=== PATIENT | male | born 1995 | race Caucasian/White ===

== ENCOUNTER 2020-03-01 13:30 | Outpatient (RCR) | payer MEDICARE, SELFPAY ==
--- NOTE | 2019-12-05 14:03 | PTOPEVAL ---
PHYSICAL THERAPY EVALUATION AND PLAN OF CARE Thank you for referring Mateo Ruiz to [facility]. I recommend Mateo participate in physical therapy 2x/week for 4weeks. Please review, sign, date and return this plan of care RITA. I agree with and certify that the following plan of care is medically necessary. 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 His mother, Cadence, is present at evaluation with him. He is able to answer yes and no question independently by using 1finger for yes and 2 fingers for no. He is also able to pick choices based on number. Cadence reports that he is in a blind study with regular follow-up visits. He requires assist for bathing, dressing, bed mobility, and walking, but mom reports he requires less assist all the time. Mateo uses a standing table 3x/day and plays the wii and exercises and stretches every day. Reports no pain at rest. Reports throughout session that he has neck pain and back pain when twisting and when lying flat supine. Pain Assessment Timing of Pain Assessment Timing of Pain Assessment Assessment Self Report Self Report Pain Level 0 Pain Score Pain Score 0: Self Report Cervical and Lumbar ROM Cervical ROM Cervical Rotation Right (0-90) 25 Query Text:Active in Degrees Cervical Rotation Left (0-90) 15 Query Text:Active in Degrees Lower Extremity Range of Motion General Lower Extremity Range of Motion Limitations Muscle Length Restriction, Muscle Tone Gross Lower Extremity Range of Motion generally WFL throughout; Comments Lower Extremity Muscle Strength Testing Hip Strength Bilateral Hip Flexion Strength 4 Good Hip Extension Strength 3+ Fair + Hip Abduction Strength 3 Fair Knee Strength Bilateral Knee Flexion Strength 4 Good Knee Extension Strength 4 Good Muscle Length Testing Muscle Length Testing Scalene Group Muscle Length (R) Severe Tightness,(L) Que
--- NOTE | 2019-12-05 15:49 | OTOPEVAL ---
OCCUPATIONAL THERAPY EVALUATION 12/05/2019 Thank you for referring Mateo Ruiz to [facility]. Skilled OT indicated 2x/week for 4 weeks for deficits outlined below. Please review, sign, date and return this plan of care RITA. I agree with and certify that the following plan of care is medically necessary. Referring Physician Date Admitting Provider: Attending Provider: Referring Provider: Dr. Bernardo Zelaya *OT Outpatient Evaluation Therapy Assessment Status Assessment Status Assessment Status Evaluation Evaluation Information Problem Diagnosis Alberto's Disease Onset 2016 Subjective Information Mateo is here today for Query Text:As Reported By Patient/ occupational therapy with dx Family of Alberto's Disease. His mother, Cadence, is present at evaluation with him. He is able to answer yes and no question independently by using 1 finger for yes and 2 fingers for no. Cadence reports that he is in a blind study with regular follow-up visits. He requires assist for bathing, dressing, bed mobility, and walking, but mom reports he requires less assist all the time. Mateo uses a standing table 3x/day and plays the Wii and exercises and stretches every day. Cadence reports that his hand and elbow contractures are progressively getting worse limiting his ability to reach, grab, and use his hands. Prior Level of Function Activity Level (Last 3 Months) Hand Dominance Right Pain Assessment Timing of Pain Assessment Timing of Pain Assessment Assessment Self Report Self Report Pain Level 0 Pain Score Pain Score 0: Self Report Upper Extremity Range of Motion Scapular/ Shoulder Range of Motion Bilateral Reason Not Measured WFL/Left,WFL/Right Elbow/Forearm Range of Motion Left Elbow Extension - Active -25 Elbow Extension - Passive -10 Forearm Supination - Active 80 Forearm Pronation - Active 90 Elbow/Forearm Range of Motion Contracture Limitations Elbow/Forearm Range of Motion Comments Elbow flexion is WNL. Right Elbow Extension - Active -10 Elbow Extension - Passive -8 Forearm Supination - Active 75 Forearm Pronation - Ac
--- NOTE | 2019-12-06 09:21 | STOPEVAL ---
SPEECH THERAPY INITIAL OUTPATIENT EVALUATION. Thank you for referring Mateo Ruiz to [facility]. Skilled Speech Therapy is indicated 2x/week 4 for deficits outlined below. Please review, sign, date and return this plan of care RITA. I agree with and certify that the following plan of care is medically necessary. Referring Physician Date Attending Provider: PHYSICIAN NOT ON STAFF *ST Outpatient Initial Evaluation Start: 12/05/19 15:45 Freq: Status: Active Protocol: Document 12/05/19 15:46 BECHERERT (Rec: 12/05/19 16:18 BECHERERT [email or web address]) Therapy Assessment Status Assessment Status Assessment Status Evaluation Outpatient Past Medical History Past Medical History No Past Medical/Surgical History Patient/Family Denies Significant Past Medical/ Surgical History Evaluation Information Problem Diagnosis Alberto's Disease Onset 2016 Subjective Information Mateo is here today for speech Query Text:As Reported By Patient/ therapy with dx of Alberto's Family Disease. His mother, Cadence, is present at evaluation. He is able to answer yes and no question independently by using 1 finger for yes and 2 fingers for no. Cadence reports that he dependent on his PEG for providing all nutritional support and that he occasionally drinks thin liquids from a cup without overt signs of aspiration. Reportedly, he is in a blind study with regular follow-up visits. His mother reports that they try to perform mouth exercises every day but minimal vocalization is exhibited. Prior Level of Function Activity Level (Last 3 Months) Occupation medically dc'd from [employer] Hand Dominance Right Functional Cognition (Planning, Shopping Dependent , Taking Medications) Cooking No Cleaning No Laundry No Shopping No Driving No Home Setting Home Type House Living Situation With Parent Prior Swallow Level Prior Intake Method NPO w/ PEG Prior Cognition/Communication Prior Communication Level No Impairment Prior Cognitive Function
--- NOTE | 2019-12-22 14:11 | PCPTNOTE ---
Patient called & cancelled scheduled appointment this date. Conflicting events.
--- NOTE | 2020-01-02 14:55 | OTOPEVAL ---
OCCUPATIONAL THERAPY RE-EVALUATION REPORT Thank you for referring Mateo Ruiz to [facility]. Continued skilled OT indicated 2x/week for 4 weeks. Please review, sign, date and return this plan of care RITA. I agree with and certify that the following plan of care is medically necessary. Referring Physician Date Referring Provider: Dr. 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 Subjective Information Mateo reports improved Query Text:As Reported By Patient/ flexibility of the right hand, Family specifically the right thumb. Pain Assessment Timing of Pain Assessment Timing of Pain Assessment Pre-Treatment Self Report Self Report Pain Level 0 Pain Score Pain Score 0: Self Report Upper Extremity Range of Motion Elbow/Forearm Range of Motion Left Elbow Extension - Active -15 Elbow Extension - Passive -5 Elbow/Forearm Range of Motion Comments (L) elbow extension improved 10* actively and 10* passively . Right Elbow Extension - Active -10 Elbow Extension - Passive -8 Elbow/Forearm Range of Motion Comments (R) elbow extension remained unchanged. 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 Actively unable to flex index finger into a fist, but passive ROM is WFL. IF PIP rests in 35* hyperextension ( improved from 40*) and DIP in 45* flexion (improved from 60*). MF PIP rests in 15* hyperextension and DIP in 5* flexion (unchanged since SOC). Mateo has been wearing a splint to facilitate PIP fle
--- NOTE | 2020-01-02 16:37 | PTOPEVAL ---
PHYSICAL THERAPY PROGRESS REPORT Thank you for referring Mateo Ruiz to [facility]. Mateo will continue PT 2x/week for 4 weeks. Please review, sign, date and return this plan of care RITA. I agree with and certify that the following plan of care is medically necessary. Referring Physician Date Progress Outpatient Past Medical History Past Medical History No Past Medical/Surgical History Patient/Family Denies Significant Past Medical/ Surgical History Evaluation Information Problem Diagnosis Alberto's Disease Onset 2016 Subjective Information Throughout evaluation Mateo Query Text:As Reported By Patient/ reports that he feels as Family though he requires less overall assist than 4 weeks ago. Pain Assessment Timing of Pain Assessment Timing of Pain Assessment Assessment Pain Scale Pain Scale Used Numeric (1 - 10) Lower Extremity Muscle Strength Testing Hip Strength Bilateral Hip Flexion Strength 4+ Good + Hip Extension Strength 3+ Fair + Hip Abduction Strength 3 Fair Knee Strength Bilateral Knee Flexion Strength 4+ Good + Knee Extension Strength 4+ Good + Bed Mobility Assessment Bed Mobility Bed Mobility Assistive Devices None Bed Type Mat Overall Bed Mobility Ability Minimum Assistance X 1 Bed Mobility Comments patient moved his own legs off and pushed himself off the mat, pushed off arm of therapist as if using bed rail . Balance Assessment Polanco Balance Assessment Sitting to Standing Minimal Assist Unsupported Stance Ability Supervision- 2 minutes Sitting Unsupported, Feet on Floor Safely- 2 minutes Standing to Sitting Independent, Uncontrolled Transfer Ability Assistance- 1 person Unsupported Stance- Eyes Closed Supervision, 10 seconds Unsupported Stance- Feet Together Independent, <30 seconds Reaching Forward while Standing Supervision Needed operator command support systems Object From Floor Requires Assistance Look Behind Shoulder - Standing Supervision w/Turning Turning 360 Degrees Requires Assistance Unsupported Stance, Alternating Feet on Assist to Prevent Fall Stair Unsupported Tandem Stance Assist to Step-15 seconds Unilateral Leg Stance Unable,assist to not fall POLANCO Balance Evaluation Total Score (/56 18 points) Gait Assessment 2 Minute Walk Total Distance Walked (feet) 158 2 Minute Walk Gait Speed Score (feet/ 1.31 second) 2 Minute Walk Test Comments assist to maintain balance no
--- NOTE | 2020-01-03 14:15 | STOPEVAL ---
SPEECH THERAPY PROGRESS REPORT AND POC UPDATE: Thank you for referring Mateo Ruiz to [facility]. Skilled ST is recommended to continue x2 week 4. Please review, sign, date and return this plan of care RITA. I agree with and certify that the following plan of care is medically necessary. Referring Physician Date Attending Provider: PHYSICIAN NOT ON STAFF *ST Outpatient REEvaluation Start: 12/05/19 15:45 Freq: Status: Active Protocol: Document 01/02/20 12:30 REBART (Rec: 01/03/20 11:05 BECHERERT [id number]) Therapy Assessment Status Assessment Status Assessment Status Re-evaluation Outpatient Past Medical History Past Medical History Source of Past Medical History Patient Prior Level of Function Activity Level (Last 3 Months) Occupation medically dc'd from [employer] Hand Dominance Right Functional Cognition (Planning, Shopping Dependent , Taking Medications) Cooking No Cleaning No Laundry No Shopping No Driving No Home Setting Home Type House Living Situation With Parent Prior Swallow Level Prior Intake Method NPO w/ PEG Prior Cognition/Communication Prior Communication Level No Impairment Prior Cognitive Function Able to Function Independently Prior Ability to Handle Finances Independent Comments Additional Prior Level of Function Communication, cognition, and Comments swallowing were normal prior to diagnosis of Alberto's disease. Pain Assessment Timing of Pain Assessment Timing of Pain Assessment Assessment Self Report Self Report Pain Level 0 Pain Score Pain Score 0: Self Report Bedside Swallow Evaluation General Reports Dysphagia Yes Related History Alberto's History of Feeding Problems Open Mouth Posture,Weight Loss Reported Difficult Consistencies Saliva,Thin Liquids,Pureed, Mixed Solid/Liquid,Solids, Pills Meal Observed Bedside Swallows Other Factors Impacting Dysphagia Neurological Impairment Intake Method Prior to Swallow Gastrostomy,NPO Evaluation Tolerance Tolerance For Swallow Moderate Distress Alertness Lethargic/Unsafe Awareness of Swallowing Problem Unable to Self-Regulate Awareness of Secretions Unaware/Drooling Postural Control Contractured,Needs Assistance, Unable to Control,Unsafe Fatigability Unsafe Limiting Factors of Swallow Function Decreased Arousal,Decreas
--- NOTE | 2020-02-01 07:37 | PCPTNOTE ---
KX modifier to be added to account starting 01/09/2020.
--- NOTE | 2020-02-01 15:10 | STOPEVAL ---
SPEECH THERAPY PROGRESS REPORT AND PLAN OF CARE UPDATE: Thank you for referring Mateo Ruiz to [facility].? The patient is scheduled to be seen for therapy?1-2x/week for 4 weeks in order to continue to improve pharyngeal swallow ability to return to oral feeding and to improve oral motor functioning for speech and swallow. Please review, sign, date and return this plan of care RITA. I agree with and certify that the following plan of care is medically necessary. Referring Physician Date Attending Provider: PHYSICIAN NOT ON STAFF *ST Outpatient RE Evaluation Start: 12/05/19 15:45 Freq: Status: Active Protocol: Document 01/30/20 12:30 BECHERERT (Rec: 02/01/20 13:11 BECHERERT [id number]) Therapy Assessment Status Assessment Status Assessment Status Re-evaluation Outpatient Past Medical History Past Medical History No Past Medical/Surgical History Patient/Family Denies Significant Past Medical/ Surgical History Pain Assessment Timing of Pain Assessment Timing of Pain Assessment Assessment Self Report Self Report Pain Level 0 Pain Score Pain Score 0: Self Report Bedside Swallow Evaluation General Reports Dysphagia Yes Related History Alberto's disease History of Feeding Problems Open Mouth Posture,Weight Loss Reported Difficult Consistencies Saliva,Thin Liquids,Pureed, Mixed Solid/Liquid,Solids, Pills Meal Observed Bedside Swallows History of Dysphagia Yes Other Factors Impacting Dysphagia Neurological Impairment Intake Method Prior to Swallow Gastrostomy,NPO Evaluation Cognition During Swallowing Decreased Initiation Tolerance Tolerance For Swallow Moderate Distress Alertness fluctuates Cooperativeness Calm,Cooperative Attention Distractible Awareness of Swallowing Problem Unable to Self-Regulate Awareness of Secretions Unaware/Drooling Postural Control Abnormal,Contractured,Needs Assistance,Unable to Control, Unsafe Fatigability Unsafe Ability to Follow Directions Needs Tactile Cues Limiting Factors of Swallow Function Decreased Arousal,Physical Impairments Swallowing Comments No oral trials due to severity of oral motor function & delay of swallow. MASA Score 83 Recommendations Feeding Type Recommended Non-Oral Bedside Swallow Comments Pt demonstrated inability to achieve labial seal or lingual
--- NOTE | 2020-02-02 14:47 | OTOPEVAL ---
OCCUPATIONAL THERAPY RE-EVALUATION REPORT 02/02/2020 Thank you for referring Mateo Ruiz to [facility].? The patient is scheduled to be seen for continued therapy? 2x/week for 4 weeks. Please review, sign, date and return this plan of care RITA. I agree with and certify that the following plan of care is medically necessary. Referring Physician Date Referring Provider: Dr. 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 Subjective Information Mateo reports improved Query Text:As Reported By Patient/ flexibility of bilateral hands Family , noting improvements with the right thumb and left index finger. His mom reports that when he wears his splints, he has better ROM of the hands, but when going without them, they return to being rigid and more contracted. His mom also reports that he is reaching for more objects such as shampoo bottles and deodorant. Pain Assessment Timing of Pain Assessment Timing of Pain Assessment Pre-Treatment Pain Scale Pain Scale Used Numeric (1 - 10) Self Report Pain Assessment Right Leg(s) Reported Pain Level 3 Pain Score Pain Score 3: Self Report Upper Extremity Range of Motion Scapular/ Shoulder Range of Motion Bilateral Reason Not Measured WFL/Left,WFL/Right Elbow/Forearm Range of Motion Left Elbow Extension - Active -10 Elbow Extension - Passive 0 Elbow/Forearm Range of Motion Comments (L) elbow extension improved 10* actively and 0* passively. Right Elbow Extension - Active -10 Elbow Extension - Passive -8 Elbow/Forearm Range of Motion Comments (R) elbow extension remained unchanged. Wrist Range of Motion Right Wrist Flexion - Active 75 Wrist Extension - Active 50 Wrist Range of Motion Comments (R) wrist extension improved by 10* Left Wrist Flexion - Active 40 Wrist Extension - Active 55 Wrist Range of Motion Comments (L) wrist extension remained WFL (L) wrist flexion improved by 5* Finger Range of Motion Left Finger Range o
--- NOTE | 2020-02-02 18:01 | PTOPEVAL ---
PHYSICAL THERAPY PLAN OF CARE UPDATE AND PROGRESS REPORT Thank you for referring Mateo Ruiz to [facility].? The patient is scheduled to be seen for therapy? 2x/week for 4 weeks. Please review, sign, date and return this plan of care RITA. I agree with and certify that the following plan of care is medically necessary. Referring Physician Date Progress Diagnosis Alberto's Disease Onset 2016 Subjective Information Cadence, mom, reports that Query Text:As Reported By Patient/ things are going well at home. Family Mateo is spending more time in standing frame. Cadence does note that she feels there is more rigidity than previously and is going to seek out if there is medical intervention that can be used to assist. Feels as though he is losing some of his ability to sit> stand independently. Wants to continue working on walking more independently and overall dynamic standing balance. Pain Scale Used FLACC FLACC Face No Particular Expression or Smile Legs Normal Position or Relaxed Activity Lying Quietly, Normal Position , Moves Easily Cry Moans or Whimpers; Occasional Complaint Consolability Content, Relaxed Pain Score Pain Score 1: FLACC Additional Pain Score Comments c/o pain right anterior tibialis Lower Extremity Muscle Strength Testing Hip Strength Bilateral Hip Flexion Strength 4+ Good + Hip Extension Strength 3+ Fair + Hip Abduction Strength 3 Fair Knee Strength Bilateral Knee Flexion Strength 4+ Good + Knee Extension Strength 4+ Good + Ankle Strength Bilateral Ankle Dorsiflexion Strength 4+ Good + Ankle Eversion Strength 4+ Good + Ankle Inversion Strength 4+ Good + Palpation tender to palpation across right anterior tibilias - trigger points noted compared to left side; Balance Assessment Sitting to Standing Minimal Assist Unsupported Stance Ability Supervision- 2 minutes Sitting Unsupported, Feet on Floor Safely- 2 minutes Standing to Sitting Independent, Uncontrolled Transfer Ability Assistance- 1 pers
--- NOTE | 2020-02-07 08:12 | PCSTNOTE ---
KX modifier should have been added to pt's account starting 01/09/20.
--- NOTE | 2020-03-05 07:23 | PCOTNOTE ---
This treatment is being continued on visit number [id number]. Please see documentation on both accounts to view progress. Completed interventions, outcomes, and problems have been marked as Inactive to facilitate the copying of the Care plan routine for recurring accounts.
--- NOTE | 2020-03-05 11:10 | PCSTNOTE ---
This treatment is being continued on visit number [id number]. Please see documentation on both accounts to view progress. Completed interventions, outcomes, and problems have been marked as Inactive to facilitate the copying of the Care plan routine for recurring accounts.
--- NOTE | 2020-03-05 14:51 | PCPTNOTE ---
This treatment is being continued on visit number [id number]. Please see documentation on both accounts to view progress. Completed interventions, outcomes, and problems have been marked as Inactive to facilitate the copying of the Care plan routine for recurring accounts.
== END 2020-03-02 12:02 | disposition home or self-care (01) ==
LOC: ANHPT 13:30
PROVIDERS: PCP Family Medicine
DX: E83.01 Wilson's disease (principal); R13.10 Dysphagia, unspecified; R47.1 Dysarthria and anarthria
CPT/HCPCS: 92507; 92522; 92524; 92526; 92610; 97018; 97035; 97110; 97116; 97140; 97162; 97163; 97166; 97530; 97760; 97763; L3933

== ENCOUNTER 2020-04-26 15:00 | Outpatient (RCR) | payer MEDICARE, SELFPAY ==
--- NOTE | 2020-03-05 07:24 | PCOTNOTE ---
The treatment documented on this account is a continuation of the treatment documented on visit number [id number]. Please see documentation on both accounts to view progress. The Plan of Care has been transitioned and updated within the new V#. I have addressed and agree with the discipline specific Problems, Interventions, and Goals for the current certification period. Completed interventions, outcomes, and problems have been marked as Inactive to facilitate the copying of the Care plan routine for recurring accounts.
--- NOTE | 2020-03-05 11:09 | PCSTNOTE ---
The treatment documented on this account is a continuation of the treatment documented on visit number [id number]. Please see documentation on both accounts to view progress. The Plan of Care has been transitioned and updated within the new V#. I have addressed and agree with the discipline specific Problems, Interventions, and Goals for the current certification period. Completed interventions, outcomes, and problems have been marked as Inactive to facilitate the copying of the Care plan routine for recurring accounts.
--- NOTE | 2020-03-05 14:49 | PTOPEVAL ---
PHYSICAL THERAPY PLAN OF CARE UPDATE Thank you for referring Mateo Ruiz to [facility].? The patient is scheduled to be seen for therapy?2x/week for 4 weeks. Please review, sign, date and return this plan of care RITA. I agree with and certify that the following plan of care is medically necessary. Referring Physician Date Progress Diagnosis Alberto's Disease Onset 2016 Subjective Information Cadence, mom, reports that Query Text:As Reported By Patient/ things are going well at home. Family overall he has better initiation and walking. He is able to get one leg up onto his hip height bed independently and with some stabilization can get the other up and requires some adjusting when in bed. He is able to use grab bars and step into the shower and turn and sit with SBA to CGA at home. Mateo is part of a medical trial for Alberto's disease and today is a medication day which usually makes him very tired. Self Report Pain Assessment Right Hip(s) Reported Pain Level 4 Right Ankle(s) Reported Pain Level 3 Pain Score Pain Score 3,4: Self Report Bed Mobility Assessment Bed Mobility Bed Mobility Assistive Devices Bed Rail Bed Type Mat Overall Bed Mobility Ability Minimum Assistance X 1 Rolling Left Ability Minimum Assistance X 1 Bridging Ability Independent Supine to Sit Ability Standby Assistance Sit to Supine Ability Minimum Assistance X 1 Balance Assessment Polanco Balance Assessment Sitting to Standing Minimal Assist Unsupported Stance Ability Supervision- 2 minutes Sitting Unsupported, Feet on Floor Safely- 2 minutes Standing to Sitting Independent, Uncontrolled Transfer Ability Assistance- 1 person Unsupported Stance- Eyes Closed Supervision, 10 seconds Unsupported Stance- Feet Together Supervision to maintain Reaching Forward while Standing Supervision Needed department supervisor Object From Floor Requires Assistance Look Behind Shoulder - Standing Supervision w/Turning Turning 360 Degrees Requires Assistance Unsupported Stance, Alternating Feet on Assist to Prevent Fall Stair Unsupported Tandem Stance Assist to Step-15 seconds Unilateral Leg Stance Unable,assist to not fall POLANCO Balance Evaluation Total Score (/56 19 points)
--- NOTE | 2020-03-05 14:50 | PCPTNOTE ---
The treatment documented on this account is a continuation of the treatment documented on visit number [id number]. Please see documentation on both accounts to view progress. The Plan of Care has been transitioned and updated within the new V#. I have addressed and agree with the discipline specific Problems, Interventions, and Goals for the current certification period. Completed interventions, outcomes, and problems have been marked as Inactive to facilitate the copying of the Care plan routine for recurring accounts.
--- NOTE | 2020-03-05 15:43 | OTOPEVAL ---
OCCUPATIONAL THERAPY RE-EVALUATION REPORT 03/05/2020 Thank you for referring Mateo Ruiz to [facility].? The patient is scheduled to be seen for continued occupational therapy? 2x/week for 4 weeks. Please review, sign, date and return this plan of care RITA. I agree with and certify that the following plan of care is medically necessary. Referring Physician Date Referring Provider: Dr. Bernardo Zelaya *OT Outpatient Evaluation Evaluation Information Problem Diagnosis Alberto's Disease Onset 2016 Additional Evaluation Detail Mateo has been participating in outpatient OT x19 sessions for treatment of bilateral UE and hand contractures and coordination due to UE rigidity and posturing. Subjective Information Cadence, mom, reports that he is Query Text:As Reported By Patient/ doing more with reaching for Family ADL objects such as toothpaste , shampoo, and deodorant. He continues to have difficulties with fine motor tasks which inhibit his ability to consistently open and manipulate the tops and he continues to need assist with this. Mateo is part of a medical trial for Alberto's disease and today is a medication day which usually makes him very tired. Pain Assessment Timing of Pain Assessment Timing of Pain Assessment Re-assessment Self Report Self Report Pain Level 0 Pain Score Pain Score 0: Self Report Upper Extremity Range of Motion Elbow/Forearm Range of Motion Left Elbow Extension - Active -20 Elbow Extension - Passive 0 Elbow/Forearm Range of Motion Comments Passive elbow extension improved to 0. Right Elbow Extension - Active -10 Elbow Extension - Passive 0 Elbow/Forearm Range of Motion Comments Passive elbow extension improved to 0. Wrist Range of Motion Left Wrist Flexion - Active 30 Wrist Extension - Active 55 Wrist Range of Motion Comments (L) wrist AROM remained relatively unchanged. He continues to have rigidity and contracture that inhibit the left wrist. Right Wrist Flexion - Active 70 Wrist Extension - Active 65 Wrist Range of Motion Comments (R) wrist extension
--- NOTE | 2020-03-06 08:54 | STOPEVAL ---
SPEECH THERAPY PROGRESS NOTE AND PLAN OF CARE UPDATE: Thank you for referring Mateo Ruiz to [facility].? Upon completion of speech therapy re evaluation, Mateo has exhibited improvement as outlined below; therefore, he is scheduled to be seen for therapy? 2x/week for 4 weeks. Please review, sign, date and return this plan of care RITA. I agree with and certify that the following plan of care is medically necessary. Referring Physician Date Attending Provider: Referring Provider: KARYN Outpatient Re Evaluation Start: 03/05/20 11:12 Freq: Status: Active Protocol: Document 03/05/20 13:30 MARJ (Rec: 03/05/20 17:13 BECHERERT [email or web address]) Therapy Assessment Status Assessment Status Assessment Status Re-evaluation Outpatient Past Medical History Past Medical History No Past Medical/Surgical History Patient/Family Denies Significant Past Medical/ Surgical History Source of Past Medical History Patient Pain Assessment Timing of Pain Assessment Timing of Pain Assessment Assessment Self Report Self Report Pain Level 0 Pain Score Pain Score 0: Self Report Swallowing Therapy Therapeutic Exercises/Maneuvers Swallowing Treatment Completed Vocal Fold Adduction Exercise, Laryngeal Elevation Exercise Repetitions Completed 10 Sets Completed 1 Cueing Type Needed Tactile,Verbal,Visual Response to Treatment Increased Endurance,Increased Movement Quality,Increased Coordination Comments Pt was again positioned in a stander. Mod/max drooling on this date. With mod verbal, visual and tactile cueing, pt verbalized the words Hey, ow and wow . Pt also verbalized 5 vowels 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 Pt was seen for reevaluation on this date. Mateo has demonstrated improvement in lingual ROM and endurance during exercises. At this time, he is able to repeat 5 vowels consistently; he is also able to approximate consonants such a /L/, /W/,
--- NOTE | 2020-03-29 12:36 | PCPTNOTE ---
Patient called & cancelled scheduled appointment this date due to not having transportion.
--- NOTE | 2020-03-29 13:49 | PCOTNOTE ---
Patient called & cancelled scheduled appointment this date due to not having transportation.
--- NOTE | 2020-04-05 15:05 | STOPEVAL ---
SPEECH THERAPY PROGRESS NOTE: Thank you for referring Mateo Ruiz to [facility].? Treatment will continue to focus on swallowing but will also shift to acquiring and the utilization of an AAC and gesturing. The patient is scheduled to be seen for therapy? x2/week for 4 weeks. Please review, sign, date and return this plan of care RITA. I agree with and certify that the following plan of care is medically necessary. Referring Physician Date Attending Provider: PHYSICIAN NOT ON STAFF *ST Outpatient REEvaluation Start: 03/05/20 11:12 Freq: Status: Active Protocol: Document 04/05/20 13:15 BECRADHART (Rec: 04/05/20 13:39 BECHERERT [email or web address]) Therapy Assessment Status Assessment Status Assessment Status Re-evaluation Outpatient Past Medical History Past Medical History No Past Medical/Surgical History Patient/Family Denies Significant Past Medical/ Surgical History Source of Past Medical History Patient Pain Assessment Timing of Pain Assessment Timing of Pain Assessment Assessment Self Report Self Report Pain Level 0 Pain Score Pain Score 0: Self Report Bedside Swallow Evaluation General Reports Dysphagia Yes Related History Alberto's disease Other Factors Impacting Dysphagia Neurological Impairment History of Pneumonia No Intake Method Prior to Swallow Gastrostomy,NPO Evaluation Cognition During Swallowing Decreased Initiation Tolerance Tolerance For Swallow Moderate Distress Alertness Lethargic/Unsafe Awareness of Swallowing Problem Unable to Self-Regulate Postural Control Needs Assistance,Unable to Control Fatigability Fatigues Easily Ability to Follow Directions Needs Tactile Cues Limiting Factors of Swallow Function Decreased Arousal,Decreased Participation,Physical Impairments Recommendations Feeding Type Recommended Non-Oral Treatment Recommendations Lip ROM Exercise,Lip Strengthening Exercise,Tongue Base Exercise,Tongue ROM Exercise,Vocal Fold Adduction Exercise ST Clinical Summary Clinical Summary ST Clinical Summary Mateo, 24 year old male, presented to outpatient speech therapy with 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 Pt was seen for reevaluation on this date. Occasionally, Mateo has
--- NOTE | 2020-04-05 15:06 | OTOPEVAL ---
OCCUPATIONAL THERAPY RE-EVALUATION 04/05/2020 Thank you for referring Mateo Ruiz to [facility] [place] The patient is scheduled to be seen for continued occupational therapy?2x/week for 4 weeks. Please review, sign, date and return this plan of care RIAT. I agree with and certify that the following plan of care is medically necessary. Referring Physician Date Referring Provider: Dr. 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 Patient's performance fluctuates depending on medication and time of day. Subjective Information Cadence, mom, reports that he is Query Text:As Reported By Patient/ doing more with reaching for Family ADL objects such as toothpaste , shampoo, and deodorant. He continues to have difficulties with fine motor tasks which inhibit his ability to consistently open and manipulate the tops and he continues to need assist with this. She also notes improved participation with dressing tasks and bathing. Pain Assessment Timing of Pain Assessment Timing of Pain Assessment Re-assessment Pain Scale Pain Scale Used Numeric (1 - 10) Self Report Pain Assessment Right Ankle(s) Reported Pain Level 7 Pain Description Aching Pain Score Pain Score 7: Self Report Interventions Used Interventions Used By Clinicians Position Change Upper Extremity Range of Motion Elbow/Forearm Range of Motion Left Elbow Extension - Active -10 Elbow Extension - Passive 0 Elbow/Forearm Range of Motion Comments Active elbow extension improved by 10*. Right Elbow Extension - Active -10 Elbow Extension - Passive 0 Elbow/Forearm Range of Motion Comments Right elbow ROM remained unchanged. Wrist Range of Motion Left Wrist Flexion - Active 30 Wrist Extension - Active 55 Wrist Range of Motion Comments (L) wrist AROM remained relatively unchanged. He continues to have rigidity and contracture
--- NOTE | 2020-04-05 17:41 | PTOPEVAL ---
PHYSICAL THERAPY PROGRESS REPORT AND PLAN OF CARE UPDATE Thank you for referring Mateo Ruiz to [facility].? The patient is scheduled to be seen for therapy? 2x/week for 4 weeks. Please review, sign, date and return this plan of care RITA. I agree with and certify that the following plan of care is medically necessary. Referring Physician Date Progress Diagnosis Alberto's Disease Onset 2016 Additional Evaluation Detail . Subjective Information Mateo's mom, Cadence, states he Query Text:As Reported By Patient/ has been doing better to bring Family his own legs into and out of the shower and he reaches for grab bars. He continues to require assist to prevent fall . He is spending up to 4 hours in the stander at home. States they have been more out of the house than usual. Mateo is part of a medical trial for Alberto's disease and today is a medication day which usually makes him very tired. Pain Scale Used FLACC FLACC Face Frequent to Constant Frown, Quivering Chin, Clenched Jaw Legs Normal Position or Relaxed Activity Squirming, Shifting Back and Forth, Tense Cry Crying Steadily, Screams or Sobs, Frequent Complaints Consolability Reassured by Occasional Touching, Hugging, or Pain Score Pain Score 6: FLACC Interventions Used Interventions Used By Clinicians Exercise Pain Relief Interventions Used By Medication Patient Posture Posture Standing Position Posture Evaluation View Anterior Head/C-Spine Posture Forward Head Thoracic Spine Posture Increased Kyphosis Lumbar Spine Posture Flattened Shoulder Posture (L) Rounded,(R) Rounded,(L) Forward,(R) Forward Pelvis Posture Posterior Tilted Hip Posture (L) Externally Rotated,(R) Externally Rotated Bed Mobility Assessment Bed Mobility Bed Mobility Assistive Devices Bed Rail Bed Type Mat Overall Bed Mobility Ability Minimum Assistance X 1 Rolling Left Ability Minimum Assistance X 1 Bridging Ability Independent Supine to Sit Ability Standby Assistance
--- NOTE | 2020-04-19 14:38 | PCSTNOTE ---
Patient called & cancelled scheduled appointment this date due to increased fatigue after traveling to see physician out of state
--- NOTE | 2020-05-01 10:15 | PCPTNOTE ---
Patient called & cancelled scheduled appointment for tomorrow, 05/02/2020.
--- NOTE | 2020-05-01 10:35 | PCPTNOTE ---
PHYSICAL THERAPY DISCHARGE NOTE Patient:Mateo Ruiz Date of :1995 Mateo's mother, Cadence, called to cancel Mateo's last appointment due to conflict of schedule, but she noted that they will stop therapy at this time and take the month of May working on exercises at home. His last re-assessment was on 04/05/20. Observation during treatments indicate no significant progress in function since this assessment. His endurance for standing and gait are increasing, but he requires at least contact guard assist in case of freezing or loss of balance. His ability to control is movements in improving; however, continues to have frequent episodes of freezing. Mateo will be discharged at this time. His initial visit was on 01/02/2020 12:30 and had a total of 26 visits. The goals have been partially met. Thank you for referring this patient to [facility]. Please review, sign, date and return this discharge summary RITA. I have been updated about the patient's current status and I agree with discharge from the above service at this time. Referring Physician Date
--- NOTE | 2020-05-01 10:56 | PCOTNOTE ---
OCCUPATIONAL THERAPY DISCHARGE NOTE 05/01/2020 Patient:Mateo Ruiz Date of :1995 Mateo's mother, Cadence, called to cancel Mateo's last appointment due to conflict of schedule, but she noted that they will stop therapy at this time and take the month of May working on exercises at home. His last re-assessment was on 04/05/20. Observation during treatments indicate no significant progress in function since this assessment. Therapy had been working on bilateral hand ROM due to rigidity and contractures, functional coordination, ADL independence, and functional strength. Limitations to progress include patient's freezing and difficulty with initiating and following through with gross UE movement. Mateo will be discharged at this time with patient's mother/caregiver independent with his home program. His initial visit was on 12/05/2019 and had a total of 31 visits. The goals have been partially met. Thank you for referring this patient to [facility]. Please review, sign, date and return this discharge summary RITA. I have been updated about the patient's current status and I agree with discharge from the above service at this time. Referring Physician Date Referring Provider: Dr. Bernardo Zelaya
--- NOTE | 2020-05-01 14:38 | PCSTNOTE ---
SPEECH THERAPY DISCHARGE: Attending Provider: PHYSICIAN NOT ON STAFF Patient:Mateo Ruiz Date of :1995 Mateo's mother, Cadence, called to cancel Mateo's last appointment due to conflict of schedule, but she noted that they will stop therapy at this time and take the month of May working on therapy/exercises at home. His last re-assessment was on 04/05/20. Observation during treatments indicate no significant progress in function since this assessment. Occasionally, Mateo has demonstrated improvement in lingual ROM and endurance during exercises but achievements are not consistent and require max cues. At his last re evaluation & currently, he is able to repeat 6 vowels consistently; he is occasionally also able to approximate consonants such a /L/, /W/, he is also able to approximate CV combinations such as /la/,/oswaldo/,/wi/,/we/. With maximum cueing, pt has been able to produce why, hey, wow, you. He has learned & is able to make 10 gestures but does not utilize them in responses or initiations without max cues. Mateo continues to be unable to control secretions and exhibits mod-marked drooling. Mateo will be discharged at this time. His initial visit was on 01/02/2020; he received a total of 32 visits. The goals have been partially met. Thank you for referring this patient to [facility]. Please review, sign, date and return this discharge summary RITA. I have been updated about the patient's current status and I agree with discharge from the above service at this time. Referring Physician Date
== END 2020-05-02 07:43 | disposition home or self-care (01) ==
LOC: ANHPT 15:00
PROVIDERS: PCP Family Medicine
DX: E83.01 Wilson's disease (principal); R13.10 Dysphagia, unspecified; R47.1 Dysarthria and anarthria
CPT/HCPCS: 92507; 92526; 97018; 97110; 97116; 97140; 97530